=== PATIENT | female | born 1990 | race Hispanic/Latino ===

== ENCOUNTER 2021-12-13 06:15 | Day surgery (SDC) | payer OTHER ==
[2021-12-11 09:50] VITALS: BP 123/62
[2021-12-11 10:13] LABS: HEMATOCRIT 45.2 % (36-48); MEAN CORPUSCULAR HEMOGLOBIN 30.8 pg (27.0-33.0); MEAN CORPUSCULAR HGB CONC 33.8 g/dL (32.0-36.0); MEAN CORPUSCULAR VOLUME 91.1 fL (79-99); RED BLOOD CELL COUNT(AUTO) 4.96 MIL/uL (4.00-5.50); RED CELL DISTRIBUTION WIDTH 12.3 % (11.0-15.5); WHITE BLOOD COUNT (AUTO) 7.7 K/uL (4.8-10.8)
[2021-12-11 10:22] LABS: CREATININE 0.8 mg/dL (0.5-1.5); POTASSIUM 4.5 mmol/L (3.5-5.1)
[2021-12-13] VITALS (17 sets, daily range): BP systolic 108–133; BP diastolic 55–80
[~2021-12-13] VITALS: Ht 157.5 cm; Wt 56.8 kg
[2021-12-13] MEDS: CEFAZOLIN SODIUM 1 GM VIAL IVP SCH ×2 (06:00→10:11)
[~2021-12-13 06:15] MED LIST: 0.9% NACL 500ML IV.SOLN 500 ML IV SCH
[2021-12-13] MEDS ORDERED: LACTATED RINGERS 1000ML 1,000 ML IV ONE (06:59)
[2021-12-13] MEDS ORDERED: MIDAZOLAM HCL 1 MG/ML 2ML VIAL ONE ×2 (09:05→09:43)
[2021-12-13] MEDS ORDERED: CEFAZOLIN SODIUM 1 GM VIAL ONE (09:18)
[2021-12-13] MEDS ORDERED: ROCURONIUM 10MG/1ML SYR 10 MG/ML ML ONE (09:43)
[2021-12-13] MEDS ORDERED: FENTANYL CITRATE PF 50 MCG/1 ML 2ML VIAL ONE (09:43)
[2021-12-13] MEDS ORDERED: SUCCINYLCHOLINE CHLORIDE 20 MG/ML 10 ML VIAL ONE (09:43)
[2021-12-13] MEDS ORDERED: PROPOFOL 10 MG/ML 20ML VIAL IV ONE (09:43)
[2021-12-13] MEDS ORDERED: LIDOCAINE PF 100MG/5ML (2%) SYRINGE 5ML ONE (09:43)
[2021-12-13] MEDS ORDERED: ROPIVACAINE 0.5% 5MG/ML 30ML IJ ONE (09:46)
[2021-12-13] MEDS ORDERED: DEXAMETHASONE SOD PHOSPHATE 10MG/ML 1ML VIAL ONE (09:51)
[2021-12-13] MEDS ORDERED: GLYCOPYRROLATE 1 MG/5 ML SYRINGE ONE (10:55)
[2021-12-13] MEDS ORDERED: NEOSTIGMINE 5MG/5ML SYR IV ONE (10:55)
[2021-12-13] MEDS ORDERED: IBUP-2070 PO (11:25)
[2021-12-13] MEDS ORDERED: CEPH500B PO (11:25)
[2021-12-13] MEDS ORDERED: MEPERIDINE-PF 25 MG/ML SYG ONE ×2 (11:27→11:38)
== END 2021-12-13 12:40 | disposition home or self-care (01) ==
LOC: DAH 06:15
PROVIDERS: ATTEND Orthopaedic Surgery
DX: M71.38 Other bursal cyst, other site (principal); M25.561 Pain in right knee; G89.29 Other chronic pain; Z79.899 Other long term (current) drug therapy; Z79.01 Long term (current) use of anticoagulants; Z80.9 Family history of malignant neoplasm, unspecified; Z98.890 Other specified postprocedural states
CPT/HCPCS: 29874; 36415; 64445; 64447; 76942; 80048; 84703; 85027; 87635; A4215; A4221; A4222; A4223; A4649 ×2; A4663; A6223; A6450; C1776; C9803; J0330; J0690 ×2; J1100; J2001; J2175 ×2; J2250 ×2; J2704; J2710; J2795; J3010; J3490; J7030; J7120